=== PATIENT | female | born 1995 | race Caucasian/White ===

== ENCOUNTER 2023-10-23 22:44 | Emergency (ER) | payer SELFPAY ==
[~2023-10-23] VITALS: Ht 175.3 cm; Wt 103.0 kg
[2023-10-23 22:47] VITALS: O2SAT 97
[2023-10-23] MEDS: SODIUM CHLORIDE 0.9% 1,000 ML IV ONE (23:21)
[2023-10-23] MEDS: ONDANSETRON HCL 4MG/2ML INJ IV STA (23:21)
[2023-10-23 23:28] LABS: BASOPHILS % 0.5 % (0.0-2.0); DIFFERENTIAL COMMENT 0; EOSINOPHILS % 0.1 % (0.0-5.0); HEMATOCRIT. 37.7 % (36.0-48.0); HEMOGLOBIN. 11.8 g/dL (12.0-16.0); LYMPHOCYTES % 20.9 % (20.0-50.0); MEAN CORPUSCULAR HGB CONC 31.4 g/dL (31.0-37.0); MEAN CORPUSCULAR VOLUME 76.5 fL (81.0-99.0); MEAN PLATELET VOLUME 7.9 fl (7.4-10.4); MONOCYTES % 3.9 % (2.0-8.0); NEUTROPHILS % 74.6 % (40.0-76.0); PLATELET 404 x1000/uL (130-400); RED BLOOD CELL COUNT 4.93 mill/uL (4.2-5.4); RED CELL DISTRIBUTION WIDTH 17.8 % (11.6-14.6); WHITE BLOOD COUNT 10.7 x1000/uL (4.5-11.0)
[2023-10-23 23:33] LABS: CHLORIDE 109 mEq/L (98-107); POTASSIUM 3.6 mEq/L (3.5-5.1); SODIUM 140 mEq/L (136-145)
[2023-10-23 23:34] LABS: CARBON DIOXIDE 21 mEq/L (21-32)
[2023-10-23 23:39] LABS: CREATININE 0.8 mg/dL (0.6-1.0); GLUCOSE 159 mg/dL (70-105); HCG SCREEN NEGATIVE; UREA NITROGEN BLOOD 6 mg/dL (9-23)
[2023-10-23 23:40] LABS: ETHANOL BLOOD 279 mg/dL (<10)
[2023-10-23 23:41] LABS: ALANINE AMINOTRANSFERASE 18 IU/L (10-49); ALBUMIN 4.7 g/dL (3.2-4.8); ASPARTATE AMINOTRANSFERASE 15 IU/L (<34); BILIRUBIN TOTAL < 0.2 mg/dL (0.1-1.0); PROTEIN TOTAL 7.6 g/dL (6.0-8.3)
[2023-10-23 23:42] LABS: BILIRUBIN DIRECT < 0.1 mg/dL (<=3.0)
[2023-10-24] MEDS ORDERED: ONDA4TAB50 MT (01:25)
[2023-10-24 01:37] VITALS: BP 109/66; PULSE 91; RESP 16; TEMP 37.11408; O2SAT 100
== END 2023-10-24 01:40 | disposition home or self-care (01) ==
LOC: ER 22:44
DX: F10.129 Alcohol abuse with intoxication, unspecified (principal); R11.2 Nausea with vomiting, unspecified; F19.90 Other psychoactive substance use, unspecified, uncomplicated; Y90.8 Blood alcohol level of 240 mg/100 ml or more
CPT/HCPCS: 80076; 80048; 80320; 84703; 83690; 85025; 36415; 96361; 96374; 99283; J2405; J7030; G0480